=== PATIENT | male | born 1960 | race Caucasian/White ===

== ENCOUNTER 2018-03-07 21:53 | Emergency (ER) | payer BC ==
[~2018-03-07] VITALS: Ht 170.2 cm; Wt 77.1 kg
--- NOTE | 2018-03-07 22:00 | NUR ---
to bed 11 bib paramedics c/o low back back s/p slip and fall trying to get in the car. pt [id number] no acute distress noted, resp even and unlabored. pending er md rm.
--- NOTE | 2018-03-07 22:06 | NUR ---
nick matos at bedside to jag vela.
--- NOTE | 2018-03-08 00:46 | NUR ---
ER MD AT BEDSIDE TALKING TO PT REGARDING XRAY RESULTS.
[2018-03-08 01:07] VITALS: BP 143/76
--- NOTE | 2018-03-08 01:07 | NUR ---
Patient discharged to home in stable condition. Written and verbal after care instructions given. Patient verbalizes understanding of instruction. ambulatory with a steady gait
== END 2018-03-08 01:08 | disposition home or self-care (01) ==
LOC: ER 21:56
DX: M54.5 Low back pain (principal); I10 Essential (primary) hypertension; E78.5 Hyperlipidemia, unspecified; W01.0XXA Fall on same level from slipping, tripping and stumbling without subsequent striking against object, initial encounter; Y93.89 Activity, other specified; Y92.89 Other specified places as the place of occurrence of the external cause; Y99.8 Other external cause status
CPT/HCPCS: 72110-TC; 72170-TC; A4606; Z7610